=== PATIENT | male | born 2000 | race Caucasian/White ===

== ENCOUNTER 2019-04-19 12:40 | Inpatient (IN) | payer OTHER ==
[~2019-04-19] VITALS: Ht 170.2 cm; Wt 55.4 kg
[2019-04-22 13:22] VITALS: BP 116/75
== END 2019-04-22 14:38 | disposition home or self-care (01) | DRG 637 ==
LOC: ED 14:00 → EDIP 16:50 → CCU 19:33 → ICU 04-21 07:50 → 4NOR 04-21 12:08 → DCLOUNGE 04-22 14:25
PROVIDERS: ADMIT Internal Medicine; ATTEND Internal Medicine
PROC: BD11YZZ Fluoroscopy of Esophagus using Other Contrast (ICD-10-PCS; principal; 2019-04-19)
DX: E10.10 Type 1 diabetes mellitus with ketoacidosis without coma (principal); N17.0 Acute kidney failure with tubular necrosis; E06.3 Autoimmune thyroiditis; E83.51 Hypocalcemia; J02.9 Acute pharyngitis, unspecified; E87.6 Hypokalemia; Z79.899 Other long term (current) drug therapy
CPT/HCPCS: 36415; 36600; 71045; 71275; 74220; 80048; 80053; 80307; 81001; 82330; 82533; 82803; 82962; 83036; 83519; 83605; 83690; 83735; 83880; 84100; 84402; 84403; 84439; 84443; 84481; 84484; 84681; 85025; 85379; 87081; 93005; 96361; 96374; G0378; J0610; J1650; J1815; J3475; J3480; Q9967; J7030; J7040; J7050